=== PATIENT | male | born 1995 | race Caucasian/White ===

== ENCOUNTER 2017-11-15 08:14 | Day surgery (SDC) | END 2017-11-15 10:56 | disposition home or self-care (01) ==

== ENCOUNTER 2018-11-03 08:50 | Observation (INO) | payer OTHER ==
[2018-11-03] VITALS (20 sets, daily range): BP systolic 95–131; BP diastolic 47–85; PULSE 68–106; RESP 16–24; Ht 185.4 cm; Wt 111.7 kg
[~2018-11-03] VITALS: Ht 185.4 cm; Wt 111.7 kg
[~2018-11-03 08:50] MED LIST: DENIES ANY MEDS; LISI10TA2 PO; LOPE2CAP PO
[2018-11-03] MEDS ORDERED: LISI40TA3 PO (09:18)
--- NOTE | 2018-11-03 10:43 | PREAC ---
Date/Time of Note Date/Time of Note DATE: 11/03/18 TIME: 10:16 Anesthesia Eval and Record Evaluation Time Pre-Procedure Interview DATE: 11/03/18 TIME: 10:16 Age 23 Sex male NPO: 8 hrs Preoperative diagnosis L2-3 stenosis and HNP Planned procedure L2-3 lumbar decompression and microdiscectomy Past Medical History Past Medical History: Includes Cardio: HTN, Dyslipidemia GI: Obesity Surgery & Anesthesia Issues No known issue Meds Anticoagulation: No Beta Greer within 24 hr: No Reason Beta Greer not given: Pt. not on B-Greer Reported Medications Lisinopril* (Lisinopril*) 40 Mg Tablet, 40 MG PO DAILY, #30 TAB 11/03/18 Discontinued Reported Medications Loperamide Hcl* (Imodium*) 2 Mg Capsule, 2 MG PO Q6H PRN for DIARRHEA, CAP MAX 16 mg/day 11/15/17 Lisinopril* (Lisinopril*) 10 Mg Tablet, 10 MG PO DAILY, #30 TAB 11/15/17 [Denies Any Meds] No Conflict Check 09/20/09 Meds reviewed: Yes Allergies Coded Allergies: Penicillins (Verified Allergy, Unknown, 11/03/18) erythromycin base (Verified Allergy, Unknown, 11/03/18) Allergies Reviewed: Yes Labs/Studies Labs Reviewed: Reviewed by anesthesiologist test: N/A Pre-procedure Exam Last vitals Vital Signs Date Temp Pulse Resp B/P (MAP) Pulse Ox O2 O2 Flow FiO2 Time Delivery Rate 11/03/18 97.6 68 16 131/85 98 Room Air 09:35 (100) Airway: Adequate mouth opening Mallampati: Mallampati II Teeth: Normal Lung: Normal Heart: Normal ASA Physical Status ASA physical status: 3 Emergency: None Planned Anesthetic General/MAC: ETT Planned Pain Management Parenteral pain med Pre-operative Attestations Prior to commencing anesthesia and surgery, the patient was re-evaluated, there was verification of: *The patient's identity *The results of appropriate recent lab work and preoperative vital signs *The above evaluation not changing prior to induction *Anesthetic plan, risk benefits, alternative and complications discussed with patient/family; questions answered; patient/family understands, accepts and wishes to proceed. ADRIANA JAMES MD Nov 03, 2018 10:26
--- NOTE | 2018-11-03 11:05 | HPN ---
Date/Time of Note Date/Time of Note DATE: 11/03/18 TIME: 11:05 Interval H&P Admission Note Pt. seen H&P reviewed: No system changes LORE PÉREZ MD Nov 03, 2018 11:05
[2018-11-03] MEDS ORDERED: THROMBIN 5000 UNIT VIAL ONE (13:08)
[2018-11-03] MEDS ORDERED: POLYMYXIN/BACITRACIN 1L IRRIG ONE (13:09)
[2018-11-03] MEDS ORDERED: GELATIN SIZE 100 SPONGE ONE (13:09)
[2018-11-03] MEDS ORDERED: BUPIVACAINE 0.5%/EPI (SDV) 30 ML INJ ONE (13:09)
[2018-11-03] MEDS ORDERED: OXYCODONE/ACETAMINOPHEN (5/325) TAB PO PRN ×2 (14:00)
[2018-11-03] MEDS ORDERED: ONDANSETRON 4 MG INJ IV PRN ×3 (14:00→23:00)
[2018-11-03] MEDS ORDERED: FENTAnyl 50 MCG/ML VIAL IV PRN ×3 (14:00)
[2018-11-03] MEDS ORDERED: LABETALOL HCL 20MG INJ IV PRN (14:00)
[2018-11-03] MEDS ORDERED: HYDROmorphONE 1 MG/5 ML IV SYRINGE IV PRN ×3 (14:00)
[2018-11-03] MEDS ORDERED: DIPHENHYDRAMINE 50 MG INJ IV PRN (14:00)
[2018-11-03] MEDS ORDERED: METOCLOPRAMIDE 10 MG INJ IV PRN (14:00)
[2018-11-03] MEDS ORDERED: EPHEDrine SULFATE 50 MG/5 ML SYG IV PRN (14:00)
[2018-11-03] MEDS ORDERED: MEPERIDINE 25 MG INJ IV PRN (14:00)
[2018-11-03] MEDS ORDERED: hydrALAzine 20 MG INJ IV PRN (14:00)
[2018-11-03] MEDS ORDERED: MIDAZOLAM 1 MG/ML 2 ML INJ IV PRN (14:00)
--- NOTE | 2018-11-03 14:54 | OPR ---
Date/Time of Note Date/Time of Note DATE: 11/03/18 TIME: 14:40 Operative Report Free Text/Dictation DATE OF OPERATION: 11/03/2018 PREOPERATIVE DIAGNOSES: 1. L2-3 spinal stenosis with neurogenic claudication 2. Left sided L2-L3 disc herniation with L3 radiculopathy 3. Obesity BMI: 32.5 kg/m2 POSTOPERATIVE DIAGNOSES: 1. L2-3 spinal stenosis with neurogenic claudication 2. Left sided L2-L3 disc herniation with L3 radiculopathy 3. Obesity BMI: 32.5 kg/m2 OPERATION PERFORMED: 1. L2-3 bilateral laminectomy, medial facetectomy, and foraminotomy 2. Left sided L2-3 microdiskectomy SURGEON: Lore Pérez MD LEGAL RECEPTIONIST: Inocencio Molina MD ANESTHESIA: General endotracheal ESTIMATED BLOOD LOSS: 50 mL SURGICAL INDICATION: The patient is a 23 year-old female who presents with a 6 month history of worsening left greater right left lower extremity pain with neurogenic claudication and radiculopathy. He was found to have a disc herniatio n and severe spinal stenosis which correlated well with his symptoms. The patient had failed conservative treatment. Risks, benefits, and alternatives to a L2-3 left sided microdiscectomy and L3-5 bilateral decompression were explained to the patient and they wished to proceed. Risks explained included but were not exclusive of bleeding, infection, cauda equina syndrome, nerve inju ry, dural tear, iatrogenic instability requiring fusion, recurrent disc herniation, fracture, vascular injury, bowel injury, stroke, heart attack and pulmonary embolism. DESCRIPTION OF TECHNIQUE: The patient was identified in the preoperative area and taken to the operating room. Rapid induction of general endotracheal anesthesia was performed. The patient was given 900 mg of clindamycin for prophylaxis. The patient was then placed in the prone position on the Dorian frame on a Delon flat top table with all prominences well padded. The back was prepped and draped in the usual sterile manner. Using a spinal needle and intraoperative fluoroscopy, the appropriate level was clearly identified (L2-3). The skin was injected using 0.25% Marcaine with epinephrine. Longitudinal midline incision was then created using a 10 blade. Further dissection through soft tissue was performed using electrocautery down to the spinous processes bilaterally. Dissection was taken down the bilateral lamina and over the facet joint capsule. A self-retaining retractor was applied. Again, intraoperative fluoroscopy confirmed the level. This procedure took approximately 45 minutes longer due to the patients body habitus and caudal migration of the disk herniation which required additional time for exposure and decompression. A rongeur was used to remove the L2 spinous process and the interspinous ligaments. We identified the interlaminar window. The microscope was brought into use for microdissection. The high-speed bur was used to thin the L3 lamina. Kerrison rongeurs were then used to resect a the bilateral L3 lamina, and a portion of the medial facets and the bone overlying the foramen. Ligamentum flavum was also resected using the Kerrison rongeurs. Care was taken to protect the thecal sac throughout the decompressive procedure. We then focused our attention on the disc herniation at the left L2-3 level. Care was taken to protect the thecal sac throughout the decompressive procedure. The thecal sac was retracted gently in a medial direction. Immediately, the extruded disc fragment was noted. The pseudo anulus was incised using an 11 blade. Several loose fragments of disk were removed. These were removed back to a stable portion of the disk. The disk space was further pressurized using a using normal saline through a syringe to ensure that no loose fragments remained behind.Palpation with a ball-tip probe did not reveal any further stenosis in the central, subarticular, or foraminal areas. The bilateral L4 and L3 pedicles were palpated using a vita to ensure a pedicle to pedicle decompression. The exiting bilateral L2 nerve root and traversing L3 nerve roots were both directly visualized and noted to be decompressed. The cephalad and caudad extent of the decompression were also confirmed using ball-tip probes and intraoperative fluoroscopy. Meticulous attention was then paid towards hemostasis using FloSeal as well as Gelfoam and thrombin. Care was taken to remove all FloSeal and Gelfoam prior to wound closure. The fascia was then closed using 0 Vicryl in an interrupted fashion. Subcutaneous tissue was closed using 2-0 Vicryl in an interrupted fashion. The skin was closed using a running 4-0 Monocryl stitch. The wound was dressed using Dermabond and a 4x4 sterile gauze. A subfascial medium hemovac was placed. The patient was returned to the supine position. She was extubated immediately postoperatively and taken to the recovery room in stable condition. COMPLICATIONS: None. Procedure Date: Nov 03, 2018 Preoperative Diagnosis 1. L2-3 spinal stenosis with neurogenic claudication 2. Left sided L2-L3 disc herniation with L3 radiculopathy 3. Obesity BMI: 32.5 kg/m Postoperative Diagnosis 1. L2-3 spinal stenosis with neurogenic claudication 2. Left sided L2-L3 disc herniation with L3 radiculopathy 3. Obesity BMI: 32.5 kg/m Operation/Procedure Performed 1. L2-3 bilateral laminectomy, medial facetectomy, and foraminotomy 2. Left sided L2-3 microdiskectomy Surgeon see signature line Cold Patcher Inocencio Bahena MD Anesthesia Type: general Estimated Blood Loss: 50 - 100 ml's Transfusion none Specimen L2-3 disk Grafts/Implants none Complications none Pt Condition Post Procedure: stable Disposition: PACU Procedure Description DESCRIPTION OF TECHNIQUE: The patient was identified in the preoperative area and taken to the operating room. Rapid induction of general endotracheal anesthesia was performed. The patient was given 900 mg of clindamycin for prophylaxis. The patient was then placed in the prone position on the Dorian frame on a Delon flat top table with all prominences well padded. The back was prepped and draped in the usual sterile manner. Using a spinal needle and intraoperative fluoroscopy, the appropriate level was clearly identified (L2-3). The skin was injected using 0.25% Marcaine with epinephrine. Longitudinal midline incision was then created using a 10 blade. Further dissection through soft tissue was performed using electrocautery down to the spinous processes bilaterally. Dissection was taken down the bilateral lamina and over the facet joint capsule. A self-retaining retractor was applied. Again, intraoperative fluoroscopy confirmed the level. This procedure took approximately 45 minutes longer due to the patients body habitus and caudal migration of the disk herniation which required additional time for exposure and decompression. A rongeur was used to remove the L2 spinous process and the interspinous ligaments. We identified the interlaminar window. The microscope was brought into use for microdissection. The high-speed bur was used to thin the L3 lamina. Kerrison rongeurs were then used to resect a the bilateral L3 lamina, and a portion of the medial facets and the bone overlying the foramen. Ligamentum flavum was also resected using the Kerrison rongeurs. Care was taken to protect the thecal sac throughout the decompressive procedure. We then focused our attention on the disc herniation at the left L2-3 level. Care was taken to protect the thecal sac throughout the decompressive procedure. The thecal sac was retracted gently in a medial direction. Immediately, the extruded disc fragment was noted. The pseudo anulus was incised using an 11 blade. Several loose fragments of disk were removed. These were removed back to a stable portion of the disk. The disk space was further pressurized using a using normal saline through a syringe to ensure that no loose fragments remained behind.Palpation with a ball-tip probe did not reveal any further stenosis in the central, subarticular, or foraminal areas. The bilateral L4 and L3 pedicles were palpated using a vita to ensure a pedicle to pedicle decompression. The exiting bilateral L2 nerve root and traversing L3 nerve roots were both directly visualized and noted to be decompressed. The cephalad and caudad extent of the decompression were also confirmed using ball-tip probes and intraoperative fluoroscopy. Meticulous attention was then paid towards hemostasis using FloSeal as well as Gelfoam and thrombin. Care was taken to remove all FloSeal and Gelfoam prior to wound closure. The fascia was then closed using 0 Vicryl in an interrupted fashion. Subcutaneous tissue was closed using 2-0 Vicryl in an interrupted fashion. The skin was closed using a running 4-0 Monocryl stitch. The wound was dressed using Dermabond and a 4x4 sterile gauze. A subfascial medium hemovac was placed. The patient was returned to the supine position. She was extubated immediately postoperatively and taken to the recovery room in stable condition. LORE PÉREZ MD Nov 03, 2018 14:50
--- NOTE | 2018-11-03 14:54 | NUR ---
RECEIVED RESPONSIVE CRYING IN PAIN, MOVING BOTH LEGS/FEET TO COMMANDS, GOOD PEDAL PULSES. LOWER BACK DRESSING DRY AND INTACT WITH HEMOVAC CONNECTED AND ACTIVATED, SMALL AMOUNT OF BLOODY DRAINAGE.
[2018-11-03] MEDS ORDERED: HYDROCODONE/APAP (5/325) TAB PO PRN ×3 (15:00→23:00)
[2018-11-03] MEDS ORDERED: AL HYDROX/MG HYDROX/SIMETH 30 ML CUP PO PRN ×2 (15:00→23:00)
[2018-11-03] MEDS ORDERED: NACL 0.9% 3 ML SYG IV SCH ×2 (15:00→23:00)
[2018-11-03] MEDS ORDERED: ACETAMINOPHEN 325 MG TAB PO PRN ×2 (15:00→23:00)
[2018-11-03] MEDS ORDERED: PROCHLORPERAZINE 10 MG TAB PO PRN ×2 (15:00→23:00)
[2018-11-03] MEDS ORDERED: NALOXONE (0.4 MG/ML) INJ IV PRN (15:00)
[2018-11-03] MEDS ORDERED: HYDROmorphONE 0.5 MG/0.5 ML SYG IV PRN ×2 (15:00→23:00)
--- NOTE | 2018-11-03 15:40 | NUR ---
AWAKE, BEING MEDICATED FOR PAIN, STATED IT IS GETTING BETTER. TURNED TO LEFT SIDE PILLOWS PLACED ON THE BACK AND BETWEEN THE LEGS. MOVING BOTH LEGS WELL.
--- NOTE | 2018-11-03 15:58 | NUR ---
OUT OF BED WITH PHY THERAPIST, TOLERATED WELL, ABLE TO STAND UP WITH ASSIST. DR PÉREZ UPDATED AND OKAYED REMOVAL OF INMAN CATHETER (PATIENT'S REQUEST)
--- NOTE | 2018-11-03 16:00 | NUR ---
INMAN CATHETER REMOVED BY Ольга REES. DUE TO VOID.
--- NOTE | 2018-11-03 16:37 | NUR ---
PT EVAL Therapy day number 1 Evaluation Start Time 15:30 Evaluation Total Time 0 min Subjective Current complaint of pain Pain Scale NUMERIC Pain Intensity 8 (0-10) Patient Stated Goal for Pain Relief 0 (0-10) Pain Level Comment low back pain/surgical site pain Pre Treatment Vital Signs Stable Yes - 101/60, 86bpm, 98%O2 sats on RA Exercise Assessment Label Bilat Lower Extremity Exercise Type Active ROM Additional Exercise Comments semi-supine APs Supine to Sit Supervised Transfer Sit to Stand Ability Stand by Assist Bed Mobility Sit to Supine Supervised Bed Transfer Ability Contact Guard Assist Chair Transfer Ability Contact Guard Assist Sitting Tolerance 15 min Additional Mobility Comments log-roll technique, supine<>sit x 2, sit to stand x 3, maintain spinal prec Patient uses wheelchair Not Applicable Gait Assist Levels Contact Guard Assist Assistive Devices None Front Wheel Walker Ambulation Distance 30 feet Additional Gait Comments forward and backward ambulation 30' with FWW; 20' without AD; steady, stabl Additional Stairs Assist Comments TBA Static Sitting Balance Good Dynamic Sitting Balance Good Standing Static Balance Good Dynamic Standing Balance Fair plus Additional Balance Assessments Comments without AD Safety Judgement Fair Activity Tolerance Good Equipment Present Drains IV pump Additional Equipment Present PACU lines and tubes Post Treatment Pain Intensity 8 0-10 Variance Documentation SEE PT EVAL PT Technical Record Comment PT EVAL Pt is a 23 yo M with PMH of obesity, HTN, who is now S/P L2-L3 decompression and L-sided microdiskectomy on 11/03/18. Pt received in PACU. Precautions: Spinal precautions, LS corset when OOB PLOF: Pt lives in 2-story [facility] with parents, bedroom on 2nd floor with no shower access on first floor. Ambulatory without AD. Pt works and is a student. CLOF: RN cleared pt for PT evaluation. Pt received L-sidelying in bed on 2LO2 via NC, agreeable to PT evaluation. Pt educated in spinal precautions, use of LS corset, and purpose of PT evaluation. AROM assessment WFL, L hip flexion slightly more limited than R due to pain. Bed mobility, tranfser, and gait assessment as described above, pt amb total of 30' with FWW and able to amb 20' without AD presenting with steady, stable gait, CGA for safety. Pt returned to bed, all needs in reach, no signs of distress. RN notified of pt's status. Recommendation: With verbal cues for safety, pt presents with good mobility , able to maintain spinal precautions with all movements and does not require assistance for bed mobility, transfers or amb. Pt's bedroom is on 2nd floor and pt may benefit from additional PT for stair training given pt's history of L LE radiculopathy. Anticipating home discharge (pt with good family support) once cleared by MD. No anticipated DME needs. P: Continue c PT POC (QID), stair training PT CLEARED TO AMB WITH SENIOR SYSTEM OPERATOR WITH USE OF GAIT BELT Addendum: 11/03/18 at 1638 by VERNON JAVIER PT ADDITION Pt issued and donned LS corset with all OOB activities.
--- NOTE | 2018-11-03 16:38 | NUR ---
AWAKE AND ALERT WITH TOLERABLE PAIN. NO S/S BLEEDING. REPORT TO TONEY WINTERS. UPDATE GIVEN TO DR PÉREZ OVER THE PHONE. TRANSFERRED TO ROOM 418 IN STABLE CONDITION. PARENTS UPDATED ON STATUS EARLIER, WILL WAIT IN THE ROOM. MOVING BOTH LEGS VERY WELL.
--- NOTE | 2018-11-03 17:00 | NUR ---
PT RECEIVED FROM PACU. A,A,OX4. NOT IN ANY ACUTE DISTRESS. THE PLAN OF CARE DISCUSSED W/ THE PT AND HIS PARENTS, VERBALIZED UNDERSTANDING. CALL LIGHT IN REACH. PT ENCOURAGED TO CALL FOR ASSISTANCE. WILL CONT. MONITORING. WILL CONT. W/ THE PLAN OF CARE.
--- NOTE | 2018-11-03 18:30 | NUR ---
DR. PÉREZ CALLED AND ASKED ABOUT HOW THE PT IS FEELING. MD MADE AWARE ABOUT PT'S CONDITION. NO ORDERS GIVEN. WILL CONT. MONITORING CLOSELY.
--- NOTE | 2018-11-03 18:58 | NUR ---
EOSS: PT'S HEMODYNAMICS AND RESPIR. STATUS ARE STABLE. NO COMPLICATIONS. NO CHANGES IN CONDITION. PAIN MGMT IS EFFECTIVE. WILL CONT. MONITORING. WILL CONT. W/ THE PLAN OF CARE.
--- NOTE | 2018-11-03 19:30 | NUR ---
REPORT WAS GIVEN TO VIANEY GARCIA FOR CONTINUITY OF CARE. ENDORSED THAT PT IS DUE TO VOID.
[2018-11-03] MEDS: HYDROCODONE/APAP (5/325) TAB PO PRN (23:07)
[2018-11-04] VITALS: BP 110/57; RESP 18
[2018-11-04] MEDS: HYDROCODONE/APAP (5/325) TAB PO PRN ×3 (04:03→12:13)
--- NOTE | 2018-11-04 05:41 | NUR ---
EOSS: PATIENT BEEN ASSESSED FOR PAIN. PATIENT BEEN MEDICATED WITH NORCO PO WITH REPORTED RELIEF. BACK DSG CDI. HVAC BEEN DRAINED , OBTAINED 50 ML. PATIENT VOIDS FREELY. OOB WITH STANDBY ASSIST. BACK PRECAUTION OBSERVED. NO C/O NAUSEA. HOURLY ROUNDING RENDERED. FALL PRECAUTION OBSERVED. CALL LIGHT WITHIN REACH.
--- NOTE | 2018-11-04 07:50 | PAC ---
Date/Time of Note Date/Time of Note DATE: 11/04/18 TIME: 07:49 Post-Anesthesia Notes Post-Anesthesia Note Last documented vital signs Vital Signs Date Temp Pulse Resp B/P (MAP) Pulse Ox O2 O2 Flow FiO2 Time Delivery Rate 11/04/18 98.6 18 110/57 97 Room Air 00:00 (74) 11/03/18 72 22:30 11/03/18 2.0 18:43 Activity: WNL Respiratory function: WNL Cardiovascular function: WNL Mental status: Baseline Pain reasonably controlled: Yes Hydration appropriate: Yes Nausea/Vomiting absent: Yes ADRIANA JAMES MD Nov 04, 2018 07:50
[2018-11-04 07:55] VITALS: BP 127/67; PULSE 76; RESP 18
--- NOTE | 2018-11-04 08:50 | NUR ---
PT NOTE Therapy day number 2 Subjective Current complaint of pain Pain Scale NUMERIC Pain Intensity 7 (0-10) Patient Stated Goal for Pain Relief 0 (0-10) Pain Level Comment LBP Transfer Training Start Time 08:50 Supine to Sit Supervised Transfer Sit to Stand Ability Supervised Bed Mobility Sit to Supine Supervised Additional Mobility Comments Log roll method Transfer Training End Time 09:05 Total Transfer Training Time 15 min (8-127) Patient uses wheelchair Not Applicable Gait Training Start Time 09:05 Gait Assist Levels Supervised Assistive Devices None Front Wheel Walker Ambulation Distance 250 feet Additional Gait Comments 50' w/AD and 200' w/no AD, reciprocal gait, steady pace, no LOB/buckling Gait Training End Time 09:29 Total Gait Training Treatment Time 24 min (8-127) Stair Climbing Ability Supervised Number of Stairs 4 Stairs Additional Stairs Assist Comments 4 steps x 2 using 1 rail, step to pattern w/VCs for sequence Static Sitting Balance Good Dynamic Sitting Balance Good Standing Static Balance Good Dynamic Standing Balance Good Additional Balance Assessments Comments w/AD and no AD Safety Judgement Good Activity Tolerance Good Equipment Present Drains IV pump Post Treatment Pain Intensity 6 0-10 Variance Documentation SEE BELOW AND PT NOTE Total Treament Time 39 min (8-127) Total Minutes 39 Total Units 3 PT Technical Record Comment PT NOTE S: Pt stated, "They just gave me pain meds." Agreeable for PT and cleared per VIANEY Tiwari, O: Received pt in semi-fowlers, alert. Reeducated pt w/spinal precautions and pt verbalized good understanding. Bed mobility w/HOB elevated using BR w/VCs for sequence Supervised. Pt donned/doffed LS corset at EOB Independently. STS to FWW Supervised. Gait training performed w/FWW 50' ano no AD 200' Supervised. Noted reciprocal gait, steady pace, and no LOB/buckling, Stair training performed 4 steps x 2 using 1 rail, step to pattern w/VCs for sequence, fair demonstration. Assisted pt back to room BTB. Left pt in comfort position, call light/phone within reach, bed alarmed, SCD's reapplied, and all needs met. VIANEY Tiwari. informed of pt's status. A: Good tolerance to tx. Pt showed no signs of distress or SOB during or after tx. No c/o dizziness or nausea throughout tx. Transfers and gait assistance/distance improved compared to previous tx. P: Continue POC and progress as tolerated.
[2018-11-04] MEDS ORDERED: DOCUSATE SODIUM 100 MG CAP PO SCH (09:00)
--- NOTE | 2018-11-04 10:10 | NUR ---
PT NOTE Therapy day number 2 Subjective Current complaint of pain Pain Scale NUMERIC Pain Intensity 5 (0-10) Patient Stated Goal for Pain Relief 0 (0-10) Pain Level Comment LBP Transfer Training Start Time 10:10 Supine to Sit Modified Independent Transfer Sit to Stand Ability Modified Independent Bed Mobility Sit to Supine Modified Independent Additional Mobility Comments Log roll method Transfer Training End Time 10:19 Total Transfer Training Time 9 min (8-127) Patient uses wheelchair Not Applicable Gait Training Start Time 10:19 Gait Assist Levels Supervised Assistive Devices None Ambulation Distance 260 feet Additional Gait Comments reciprocal gait, steady pace, no LOB/buckling Gait Training End Time 10:34 Total Gait Training Treatment Time 15 min (8-127) Stair Climbing Ability Modified Independent Number of Stairs 12 Stairs Additional Stairs Assist Comments 12 steps x 1 using 1 rail, step to pattern, good demonstration Static Sitting Balance Good Dynamic Sitting Balance Good Standing Static Balance Good Dynamic Standing Balance Good Additional Balance Assessments Comments no AD Safety Judgement Good Activity Tolerance Good Equipment Present Drains IV pump Post Treatment Pain Intensity 5 0-10 Variance Documentation SEE BELOW AND PT NOTE Total Treament Time 24 min (8-127) Total Minutes 24 Total Units 2 PT Technical Record Comment PT NOTE S: Pt stated, "My pain is like a 5 now." Agreeable for PT and cleared per VIANEY Tiwari, O: Received pt in semi-fowlers, alert. Bed mobility w/bed flat w/out using rail Delores. Pt donned/doffed LS corset at EOB Independently. STS w/no AD Delores. Gait training performed w/no AD 260' Supervised/Delores. Noted reciprocal gait, steady pace, and no LOB/buckling. Stair training performed 12 steps x 1 using 1 rail, step to pattern, good demonstration. Assisted pt back to room to toilet per pt's request Independent. Assisted pt BTB. Left pt in comfort position, call light/phone within reach, bed alarmed, SCD's reapplied, and all needs met. VIANEY Tiwari. informed of pt's status. A: Good tolerance to tx. Pt showed no signs of distress or SOB during or after tx. No c/o dizziness or nausea throughout tx. Bed mobility, transfers and gait distance improved compared to previous tx. Pt is clear to ambulate in hallway w/nursing staff using a gait belt and no AD. P: Continue POC and progress as tolerated.
--- NOTE | 2018-11-04 11:28 | NUR ---
SUNITA NOTES: MET WITH THE PT AT THE BEDSIDE. PT IS A 23 YRS OLD MALE WITH ADMITTING DX OF L2-3 LUMBAR DECOMPRESSION AND LEFT SIDED MICRODISC. PRIOR TO THE ADMISSION, PT CAME FROM HOME AND LIVED WITH HIS PARENTS. PT WAS ADL INDEPENDENT. PT DOES NOT WANT TO HAVE ELEVATED TOILET SEAT OR BSC. PT WILL BE DC HOME TODAY AFTER SURGEON SEES THE PT. BEDSIDE NURSE RENU Tiwari WAS INFORMED. VINCENT GOMEZ CM [id number] Addendum: 11/04/18 at 1132 by VINCENT PATTON CM Amended: Links added.
--- NOTE | 2018-11-04 12:20 | PDOCDIS ---
Discharge Instructions CONDITION [id number] Patient Condition: [id number] Good HOME CARE INSTRUCTIONS: [id number] Diet Instructions: [id number] Regular ACTIVITY: [id number] Activity Restrictions: [id number] Avoid heavy lifting [id number] Bathing Restrictions: [id number] Shower FOLLOW UP/APPOINTMENTS Follow-up Plan Follow-up with Dr. Pérez in 2 weeks LORE PÉREZ MD Nov 04, 2018 12:20
--- NOTE | 2018-11-04 13:25 | NUR ---
DISCHARGE: PATIENT D/CD FROM ROOM 418 AT 1325. PATIENT GIVEN D/CD INSTRUCTIONS, PAPERWORK AND PRESCRIPTION. DR. PÉREZ CAME TO D/C HEMOVAC AND GIVE PATIENT PRESCRIPTIONS. DR. PÉREZ PHYSICALLY HANDED PATIENT THE PAIN MEDICATION PRESCRIPTION. VSS UPON D/C. PATIENT KNOWS TO CALL DR. PÉREZ TO MAKE FOLLOWUP APPOINTMENT PATIENT D/CD VIA WHEELCHAIR WITH SELENA MARINO AND PATIENTS PARENTS TO BRING HIM HOME. PATIENT ALERT AND IN NO VISIBLE DISTRESS
== END 2018-11-04 13:28 | disposition home or self-care (01) ==
LOC: SDS 08:50 → MS1 14:56
PROVIDERS: ADMIT Orthopaedic Surgery; ATTEND Orthopaedic Surgery
DX: M48.062 Spinal stenosis, lumbar region with neurogenic claudication (principal); M51.16 Intervertebral disc disorders with radiculopathy, lumbar region
CPT/HCPCS: 63030; 80048; 85014; 85018; 88304; 97116; 97161; 97530; J1170; J2175; J2405; Z7500; Z7512; Z7610; G0378